=== PATIENT | female | born 2000 | race Caucasian/White ===

== ENCOUNTER → 2022-10-12 | Outpatient (CLI) | payer OTHER, SELFPAY ==
--- NOTE | 2022-10-12 06:31 | MRI_ITS ---
STUDY: MRI LEFT REARFOOT WITHOUT CONTRAST REASON FOR EXAM: Female, 22 years old. rule out plantar facia rupture TECHNIQUE: Standardized fat and water weighted pulse sequences were obtained in all 3 orthogonal planes. COMPARISON: X-ray of the left foot and ankle dated October 06, 2022 FINDINGS: There is a moderate size complete tear with retraction of the far medial and calcaneal side of the plantar fascia without retraction of the torn fascia 1.63 cm from the bone. Minimal posttraumatic edema is present in the plantar and far medial side of the calcaneus at the site of plantar fascial rupture see image series 5. No fracture or displaced bony fragment is present. The remaining aspects of the plantar fascia are normal. A small ankle joint effusion is present. No osteochondral defect of the distal tibia or talar dome is present. Normal subcutis adipose space. Normal posterior tibialis tendon. Normal flexor digitorum longus tendon. Normal flexor hallucis longus tendon. Normal peroneus longus and brevis tendons. Normal tibialis anterior tendon. Normal extensor hallucis longus tendon. Normal extensor digitorum longus tendons. Normal Achilles tendon and teno-osseous insertion. Normal intrinsic muscles of the rearfoot. Normal distal tibiofibular syndesmotic ligamentous complex. Normal lateral ligamentous complex. Normal subtalar ligaments and sinus tarsi. Normal deltoid ligamentous complexes. Normal plantar calcaneonavicular (spring) ligament. Normal tibiotalar articulation. Normal talar dome. Normal subtalar articulations. Normal talonavicular articulation. Normal calcaneocuboid articulation. Normal navicular-cuneiform articulations. MRI/Lower Ext/No Jt/w/o IMPRESSION: 1. There is a moderate size complete tear with retraction of the far medial and calcaneal side of the plantar fascia without retraction of the torn fascia 1.63 cm from the bone. Minimal posttraumatic edema is present in the plantar and far medial side of the calcaneus at the site of plantar fascial rupture see image 15 series 5. No fracture or displaced bony fragment is present. The remaining aspects of the plantar fascia are normal. 2. Small ankle joint effusion Electronically Signed: Adarsh Johns MD at 8:31 EDT ,
== END | disposition home or self-care (01) ==
PROVIDERS: Referring Provider Orthopaedic Surgery Sports Medicine; Visit Provider Orthopaedic Surgery Sports Medicine
DX: S93.692A Other sprain of left foot, initial encounter (principal)
CPT/HCPCS: 73718